=== PATIENT | female | born 1965 | race Caucasian/White ===

== ENCOUNTER 2017-01-07 15:59 | Emergency (ER) | payer BC ==
--- NOTE | ~2017-01-07 | CT4 ---
[facility] A Service of [facility] RADIOLOGY TEXT RESULTS PATIENT: BRENDA BRUCE LOCATION: SED : 65 UNIT #: [id number] AGE: [address]: ROBERTO PEREZ SEX: F ORDER DR: [id number] [id number] E MR#: [id number] #: [id number] NAME: BRENDA BRUCE. : 1965 SEX: F STUDY DATE/TIME: 01/07/2017 17:31 UNIT: SED ROOM: STUDY DESCRIPTION: CT Abd and Pelv Wo Cont Attending Physician: Roberto Perez Ordering Physician: Roberto Perez Primary Care Physician: Santos Ha M.D. MEDICAL IMAGING REPORT This report is preliminary unless electronic signature is present. EXAM CT abdomen and pelvis, 01/07/2017 HISTORY Right lower quadrant pain radiating to back for 2 weeks. Prior history of ovarian cysts and section. TECHNIQUE CT abdomen and pelvis performed without administration of oral or intravenous contrast. This CT exam was performed with one or more of the following radiation dose reduction techniques: automatic exposure control, adjustment of mA and/or kV according to patient size, and iterative reconstruction. FINDINGS Study limited in the absence of contrast. No prior CTs for comparison at this institution. Lung bases show some minimal atelectasis. Otherwise unremarkable. Inferior heart and pericardium unremarkable. Liver, gallbladder, spleen, pancreas, adrenal glands unremarkable. The right kidney and ureter normal. Left kidney shows a small perhaps 2.0 mm calculus lower pole left kidney with no obstruction. No hydronephrosis or hydroureter and no secondary signs of recent stone passage. CT PELVIS: No inguinal adenopathy. Trace free fluid in the pelvis. Not drainable fluid collection. Probably physiologic in nature. Calcification in the uterus may be calcified fibroid or reflect prior section. There is a right ovarian cyst measuring 12.0 mm in diameter. Probably physiologic in nature. Correlate with the patient's menstrual history. Left adnexa unremarkable. There is no pelvic or retroperitoneal adenopathy. Distal esophagus, stomach, small bowel unremarkable. Patient appears to retain normal retrocecal appendix. Colon unremarkable. Minimal scattered atherosclerotic arterial STS. [facility] A Service of [facility] RADIOLOGY TEXT RESULTS PATIENT: BRENDA BRUCE LOCATION: SED : 65 UNIT #: [id number] AGE: [address]: ROBERTO PEREZ SEX: F ORDER DR: calcifications. No acute-appearing bony abnormality. IMPRESSION 1. There is a 12.0 mm right ovarian cyst likely physiologic in nature. Please correlate with patient's menstrual history. 2. Trace free fluid in the pelvis. Not a drainable fluid collection and probably physiologic. 3. Nonobstructing punctate left lower pole renal calculus. No perinephric inflammatory change and no secondary sign of recent stone passage. 4. Appendix normal. 5. Calcified uterine fibroid versus chronic postoperative change from reported prior section. 6. Gallbladder normal. 1. Dictated by... Eric Gusman M.D. THIS IS AN ELECTRONICALLY VERIFIED REPORT Eric Gusman M.D. at 01/10/2017 1:22 PM Fawn TD: 01/08/2017 08:41 JOB #: [id number] MEDICAL IMAGING REPORT Page 1 of 1
[~2017-01-07 15:59] MED LIST: FLEXERIL10 M1 PO; VICODIN 5/1 TAB 5/50 PO; WELLBUTRIN XL; ZETIA PO
[2017-01-07] MEDS ORDERED: CELEXA (16:06)
[2017-01-07 16:52] LABS: URINE SOURCE CLEAN CATCH
[2017-01-07 16:59] LABS: BASOPHIL% 0.6 % (0-2.5); EOSINOPHIL% 0.1 % (0.0-7.0); HEMATOCRIT 38.8 % (35.0-45.0); LYMPHOCYTE# 1.5 X10e3 (1.0-3.5); LYMPHOCYTE% 20.2 % (17.0-45.0); MEAN CELL VOLUME 85.6 FL (83-96); MEAN CORPUSCULAR HGB CONC 36.2 g/dL (30-36); MONOCYTE# 0.5 X10e3 (0-1.0); MONOCYTE% 6.3 % (3.0-12.0); NEUTROPHIL# 5.5 X10e3 (1.5-7.1); NEUTROPHIL% 72.8 % (40-75); PLATELET COUNT 204 X10e3 (140-420); RED BLOOD COUNT 4.53 X10e (3.90-5.30); RED CELL DISTRIBUTION WIDTH 13.1 % (11.0-15.5); WHITE BLOOD COUNT 7.6 X10e3 (4.0-10.5)
[2017-01-07 17:01] LABS: URINE APPEARANCE CLEAR; URINE BILIRUBIN NEG (NEG); URINE BLOOD TRACE-INTACT (NEG); URINE COLOR YELLOW; URINE GLUCOSE NEG (NORM); URINE KETONE NEG (NEG); URINE LEUKOCYTE ESTERASE NEG (NEG); URINE NITRATE NEG (NEG); URINE PH 6.5 (5-8); URINE PROTEIN NEG (NEG); URINE UROBILINOGEN 0.2 MG/DL (NORM)
[2017-01-07 17:05] LABS: DIFF IND NO
[2017-01-07 17:07] LABS: MICRO INDICATED? YES
[2017-01-07 17:08] LABS: URINE BACTERIA NEG (NEG); URINE WBC 0-2 /[HPF] (0-5)
[2017-01-07 17:09] LABS: CULTURE INDICATED? NO; URINE SQUAMOUS EPITHELIAL CELL FEW /[HPF]
[2017-01-07 17:19] LABS: ALBUMIN SERUM 4.4 g/dL (3.5-5.0); ALKALINE PHOSPHATASE 88 U/L (32-92); ALT (SGPT) 16 U/L (10-40); AMYLASE 24 U/L (0-46); AST (SGOT) 19 U/L (10-42); BILIRUBIN,TOTAL 0.7 mg/dL (0.2-2.0); BLOOD UREA NITROGEN 12 mg/dL (9-23); CALCIUM SERUM 9.1 mg/dL (8.4-10.2); CARBON DIOXIDE 27 mmol/L (22-31); CHLORIDE 103 mmol/L (100-111); CREATININE SERUM 0.6 mg/dL (0.6-1.4); GLOM FILT RATE Estimated 105.5 mL/min (>60); GLUCOSE FASTING 94 mg/dL (70-110); LIPASE 21 U/L (22-51); POTASSIUM 3.3 mmol/L (3.5-5.1); PROTEIN TOTAL SERUM 6.9 g/dL (6.0-8.3); SODIUM 137 mmol/L (135-145)
[2017-01-07 17:24] LABS: BILIRUBIN, DIRECT <0.1 mg/dL (0.0-0.2); BILIRUBIN,INDIRECT 0.6 mg/dL (0.0-0.9)
[2017-01-11] MEDS ORDERED: DIOVAN40 MG PO (12:58)
== END 2017-01-07 18:39 | disposition home or self-care (01) ==
LOC: SED 15:59
PROVIDERS: Nurse Practitioner
DX: N83.201 Unspecified ovarian cyst, right side (principal); M54.5 Low back pain; I10 Essential (primary) hypertension; E78.5 Hyperlipidemia, unspecified; Z98.890 Other specified postprocedural states; Z88.0 Allergy status to penicillin; Z88.1 Allergy status to other antibiotic agents; Z88.2 Allergy status to sulfonamides
CPT/HCPCS: 36415; 74176; 80048; 80076; 81003; 82150; 83690; 84703; 85025; 96361; 96374; 96375; 99284; J1885; J2405

== ENCOUNTER → 2017-01-11 | Day surgery (SDC) | payer BC ==
[~2017-01-11] MED LIST changes: +CELEXA; +DIOVAN40 MG PO
--- NOTE | ~2017-01-11 | OR ---
Unit #: [id number] #: [id number] Patient: BRENDA BRUCE [id number] [facility]. [place], [place] [address] [id number] O MR#: [id number] NAME: BRENDA BRUCE ROOM: Date of Procedure: 01/11/2017 Admission Date: 01/11/2017 Surgeon: Ricardo Nieves M.D. : 1965 Attending Physician: Ricardo Nieves M.D. Primary Care Physician: Santos Ha M.D. OPERATIVE REPORT PRIMARY CARE PHYSICIAN Santos Ha M.D. PREOPERATIVE DIAGNOSIS Colorectal cancer screening in an average-risk patient. PROCEDURE PERFORMED Colonoscopy up to cecum and terminal ileum with biopsies. POSTOPERATIVE DIAGNOSES 1. The patient had mild nonspecific distal colitis. These changes could be also the result of the colonic prep. Appropriate biopsies were obtained. 2. Mild sigmoid and descending colon diverticulosis. 3. Rest of the examination up to cecum and terminal ileum was normal. The quality of the prep was excellent. No polyps were seen. RECOMMENDATIONS Repeat colonoscopy in 10 years. DESCRIPTION OF PROCEDURE Following detailed explanation of the potential risks and complications of a colonoscopy, namely perforation, bleeding, and complication related to sedation, the patient was brought to GI lab and laid in the left lateral decubitus position. A digital rectal examination was performed, which was normal. Lubricated tip of the Olympus video colonoscope was inserted through the anus and advanced under direct vision. The scope was advanced past rectosigmoid into descending colon. Multiple medium sized diverticula were noted in this area. In addition, the patient had multiple areas of erythema and erosions in the sigmoid and descending colon. These suggested nonspecific colitis, the intervening mucosa being normal. The scope tip was then navigated all the way up to cecum with visualization of the ileocecal valve and the appendiceal orifice. Preparation was excellent with good visualization and photodocumentation was obtained. Last few inches of the terminal ileum were also visualized after intubation of the ileocecal valve and appeared normal. Successive segments of the colonic mucosa were examined upon withdrawal and appeared unremarkable. There being no polyps, mass lesions, or AVMs. The area of localized patchy erythema in the sigmoid and descending colon was then biopsied. Other than the left-sided diverticula, no other abnormalities were found. The patient did not have any hemorrhoids at the anal verge. The scope was then withdrawn and the patient returned to the recovery Unit #: [id number] #: [id number] Patient: BRENDA BRUCE. She tolerated the procedure without any postprocedure complications. Dictated by... Alejandro Aviles/rachelle TD: 01/11/2017 14:01 JOB #: [id number] CC: Santos Ha M.D. OPERATIVE REPORT Page 1 of 1 X Ricardo Nieves MD X PROCEDURE OPERATIVE NOTE
== END | disposition home or self-care (01) ==
LOC: COPS 09:39
DX: Z12.11 Encounter for screening for malignant neoplasm of colon (principal); K52.9 Noninfective gastroenteritis and colitis, unspecified; K63.89 Other specified diseases of intestine; K57.30 Diverticulosis of large intestine without perforation or abscess without bleeding; I10 Essential (primary) hypertension; F32.9 Major depressive disorder, single episode, unspecified; Z88.0 Allergy status to penicillin; Z88.1 Allergy status to other antibiotic agents; Z88.2 Allergy status to sulfonamides; Z79.899 Other long term (current) drug therapy; Z98.890 Other specified postprocedural states
CPT/HCPCS: 84703; 88305